=== PATIENT | female | born 1945 | race American Indian/Alaskan Native ===

== ENCOUNTER 2017-04-12 12:44 | Outpatient (CLI) | payer MEDICARE, OTHER ==
--- NOTE | 2017-04-12 20:40 | XRay Report ---
FINAL REPORT EXAM: XR ANKLE 3+V LT HISTORY: LEFT ANKLE PAIN TECHNIQUE: AP, lateral, and oblique views of the left ankle PRIORS: None. FINDINGS: There is no evidence for acute fracture or dislocation. No soft tissue swelling or radiopaque foreign bodies are seen. Vascular calcifications in the soft tissues are noted. The ankle mortise is intact. Bony mineralization is normal and joint spaces are maintained. There is loss of the plantar arch of the aorta. Lung off the plantar aspect of the calcaneus is present IMPRESSION: No acute soft tissue or bony abnormality noted.
== END 2017-04-12 12:45 | disposition home or self-care (01) ==
LOC: SPVIMAG 12:44
PROVIDERS: ATTEND Orthopaedic Surgery Sports Medicine
DX: M25.871 Other specified joint disorders, right ankle and foot (principal)